=== PATIENT | female | born 1935 | race Caucasian/White ===

== ENCOUNTER → 2018-04-24 | Outpatient (CLI) | payer MEDICARE ==
--- NOTE | 2018-04-24 10:25 | RADIOLOGY IMAGING REPORT ---
FACILITY: [facility] - [place] PATIENT NAME: Makayla Chew : 1935 MR: [id number] V: [id number] EXAM DATE: ORDERING PHYSICIAN: JOSE LUIS LEI TECHNOLOGIST: Location: [facility] [place] Patient: Makayla Chew : 1935 Visit/Account:[id number] Date of Sevice: 04/24/2018 GALLBLADDER HISTORY: Right upper quadrant pain times several months, generalized abdomen tenderness COMPARISON: None. FINDINGS: Gallbladder: There is a tiny nonmobile nonshadowing echogenic focus within the gallbladder possibly a polyp or nonshadowing stone. There is a negative Vee sign by technologist notation. There is no evidence of gallbladder wall thickening. Liver: Negative. Common duct: Mildly dilated, 9.8 mm diameter. Pancreas: Partially obscured by bowel, visualized aspects unremarkable. Right kidney: There is a lobular contour to the right kidney. The right kidney measures 10 cm in rick gth. There is mild increased echogenicity of the renal parenchyma which can be seen with medical mingo al disease. There is mild fullness the right renal pelvis Upper abdominal aorta and IVC: Patent. Ascites: None visualized. IMPRESSION: There is a tiny nonmobile nonshadowing echogenic focus within the gallbladder possibly representing a polyp or nonshadowing stone Common bile duct is mildly dilated at 9.8 mm There is a lobular contour to the right kidney with increased echogenicity of the renal parenchyma wh ich can be seen with medical renal disease There is mild fullness the right renal pelvis Report Dictated By: Angelina Partdia MD at 04/24/2018 10:10 AM Report E-Signed By: Angelina Partida MD at 04/24/2018 10:16 AM WSN:[email or web address]
== END ==
LOC: US 01:34
PROVIDERS: ATTEND Family Medicine
DX: R93.5 Abnormal findings on diagnostic imaging of other abdominal regions, including retroperitoneum (principal)
CPT/HCPCS: 76705